=== PATIENT | male | born 1940 | race Caucasian/White ===

== ENCOUNTER 2017-12-26 15:18 | Emergency (ER) | payer MEDICARE ==
[2017-12-26 15:23] VITALS: BP 145/78; PULSE 94; RESP 20; TEMP 98.2; O2SAT 96
--- NOTE | 2017-12-26 17:45 | C.PDOC ---
History Of Present Illness Pt c/o LLE pain. Denies injury. Time Seen by Provider: 12/26/17 15:50 Chief Complaint (Nursing): Lower Extremity Problem/Injury History Per: Patient Onset/Duration Of Symptoms: Days (few) Current Symptoms Are (Timing): Still Present Severity: Moderate Additional History Per: Prior Records Past Medical History Reviewed: Historical Data, Nursing Documentation, Vital Signs Vital Signs: Last Vital Signs Temp 98.2 F 12/26/17 15:21 Pulse 94 H 12/26/17 15:21 Resp 20 12/26/17 15:21 BP 145/78 12/26/17 15:21 Pulse Ox 96 12/26/17 15:21 - Medical History PMH: Diabetes, HTN Other Surgeries: LE bypass graft Family History: States: Unknown Family Hx - Social History Hx Alcohol Use: No Hx Substance Use: No - Immunization History Hx Tetanus Toxoid Vaccination: No Hx Influenza Vaccination: Yes Hx Pneumococcal Vaccination: Yes Review Of Systems Except As Marked, All Systems Reviewed And Found Negative. Constitutional: Negative for: Fever, Weakness Cardiovascular: Negative for: Chest Pain Respiratory: Negative for: Shortness of Breath, Hemoptysis Gastrointestinal: Negative for: Vomiting, Abdominal Pain Musculoskeletal: Positive for: Leg Pain (left). Negative for: Neck Pain, Back Pain Skin: Negative for: Rash Neurological: Negative for: Weakness, Numbness Physical Exam - Physical Exam Appears: Non-toxic, No Acute Distress Skin: Normal Color, Warm, Dry, No Rash Head: Atraumatic, Normacephalic Eye(s): bilateral: Normal Inspection, PERRL, EOMI Neck: Normal ROM, Supple Cardiovascular: Rhythm Regular Respiratory: Normal Breath Sounds, No Accessory Muscle Use Gastrointestinal/Abdominal: Soft, No Tenderness Back: No CVA Tenderness, No Vertebral Tenderness Extremity: Normal ROM, No Pedal Edema, Calf Tenderness (mild left), Capillary Refill (wnl) Extremity: Bilateral: Normal Color And Temperature Pulses: Left Dorsalis Pedis: Normal Neurological/Psych: Oriented x3, Normal Motor, Normal Sensation ED Course And Treatment O2 Sat by Pulse Oximetry: 96 Pulse Ox Interpretation: Normal - CT Scan/US LLE duplex Other Rad Studies (CT/US): Radiology Report Reviewed CT/US Interpretation: Negative for DVT. Progress - Interventions Interventions:: Observation - Medications Administered Oral: Acetaminophen - Data Reviewed Data Reviewed: Diagnostic imaging - Patient Status Patient status: Partially improved - Continuity of Care Discussed patient case with:: Patient, ED Nurse - Patient Plan Patient Plan: Discharge, F/U with PCP, Continue present meds Disposition Counseled Patient/Family Regarding: Studies Performed, Diagnosis, Need For Followup, Rx Given - Disposition Referrals: Aubrey Benavidez Jr., MD [Staff Provider] - Disposition: HOME/ ROUTINE Disposition Time: 17:46 Condition: IMPROVED Additional Instructions: Follow up with your doctor within 1 week for further evaluation and treatment. Return to the ER if you develop redness, swelling, chest pain, shortness of breath, weakness, numbness, worsening of symptoms or if you have any other concerns. Prescriptions: Acetaminophen [Tylenol Extra Strength] 2 tab PO Q6 PRN #30 tablet PRN Reason: Pain, Moderate (4-7) Forms: [facility] (Russian), General Discharge Instructions Print Language: GREENLANDIC - Clinical Impression Clinical Impression: Pain of left lower extremity
--- NOTE | 2017-12-28 09:13 | VASCLAB ---
PROCEDURE: Left Lower Extremity Venous Duplex Exam. HISTORY: Pain r/o DVT PRIORS: None. TECHNIQUE: Left common femoral, femoral, popliteal and posterior tibial, peroneal and great saphenous veins were evaluated. Flow was assessed with color Doppler, compressibility, assessment of phasic flow and augmentation response. Report prepared by ILIA Cortez FINDINGS: LEFT: 1. Common Femoral Vein: 1.1. Compressibility - Fully compressible: Thrombus - None : Flow - Phasic: Augmentation -Normal: Reflux - None. 2. Femoral Vein: 2.1. Compressibility - Fully compressible: Thrombus - None: Flow - Phasic: Augmentation -Normal: Reflux - None. 3. Popliteal Vein: 3.1. Compressibility - Fully compressible: Thrombus - None: Flow - Phasic: Augmentation -Normal: Reflux - None. 4. Posterior Tibial Vein: 4.1. Compressibility - Fully compressible: Thrombus - None: Flow - Phasic: Augmentation -Normal: Reflux - None. 5. Peroneal Vein: 5.1. Compressibility - Fully compressible: Thrombus - None: Flow - Phasic: Augmentation -Normal: Reflux - None. 6. Great Saphenous Vein: 6.1. Compressibility - : Thrombus - : Flow - : Augmentation - : Reflux - . OTHER FINDINGS: Femoro-tibial trunk bypass was patent. The great saphenous vein was previously removed for bypass. IMPRESSION: No evidence of deep or superficial vein thrombosis of the left lower extremity with excellent venous flow. Normal valve function noted of the left side. Normal venous flow noted in the right common femoral vein.
== END 2017-12-26 17:58 | disposition home or self-care (01) ==
LOC: C.ER 15:18
DX: M79.605 Pain in left leg (principal)

== ENCOUNTER 2018-02-21 18:30 | Emergency (ER) | payer MEDICARE ==
[2018-02-21 19:06] VITALS: BP 126/74; PULSE 78; RESP 18; TEMP 98; O2SAT 98
--- NOTE | 2018-02-21 19:08 | C.PDOC ---
History Of Present Illness 77 year old male presents to the ER with a complaint of left testicular pain that began today. Patient notes having a similar episode a few months ago. Denies injury, dysuria, hematuria, or fever. Chief Complaint (Nursing): Male Genitourinary History Per: Patient History/Exam Limitations: no limitations Onset/Duration Of Symptoms: Hrs Current Symptoms Are (Timing): Still Present Quality Of Discomfort: Unable To Describe Associated Symptoms: denies: Fever, Urinary Symptoms Alleviating Factors: None Recent travel outside of the [place]: No Past Medical History Reviewed: Historical Data, Nursing Documentation, Vital Signs Vital Signs: Last Vital Signs Temp 98 F 02/21/18 19:00 Pulse 78 02/21/18 19:00 Resp 18 02/21/18 19:00 BP 126/74 02/21/18 19:00 Pulse Ox 98 02/21/18 19:20 - Medical History PMH: Diabetes, HTN Family History: States: Unknown Family Hx - Social History Hx Alcohol Use: No Hx Substance Use: No - Immunization History Hx Tetanus Toxoid Vaccination: No Hx Influenza Vaccination: Yes Hx Pneumococcal Vaccination: Yes Review Of Systems Constitutional: Negative for: Fever Gastrointestinal: Negative for: Abdominal Pain Genitourinary: Positive for: Other (Left testicular pain). Negative for: Dysuria, Hematuria Skin: Negative for: Rash Physical Exam - Physical Exam Appears: Non-toxic Skin: Normal Color, Warm, Dry Head: Atraumatic, Normacephalic Eye(s): bilateral: Normal Inspection Oral Mucosa: Moist Chest: Symmetrical, No Tenderness Cardiovascular: Rhythm Regular Respiratory: Normal Breath Sounds, No Rales, No Rhonchi, No Wheezing Gastrointestinal/Abdominal: Soft, No Tenderness Male Genital: No Testicular Swelling, No Inguinal Swelling, No Scrotal Swelling , Other (Mild tenderness to posterior left testicle) Neurological/Psych: Oriented x3, Normal Speech ED Course And Treatment - Laboratory Results Result Diagrams: 02/21/18 19:19 02/21/18 19:19 O2 Sat by Pulse Oximetry: 98 (Room air) Pulse Ox Interpretation: Normal Progress Note: Blood work, urinalysis, and testicular US ordered. IV fluids and toradol administered. Disposition - Disposition Disposition: ELOPEMENT - ER ONLY Disposition Time: 10:20 Condition: STABLE Forms: [facility] (Chadian) - POA Present On Arrival: None - Clinical Impression Clinical Impression: Left testicular pain - Scribe Statement The provider has reviewed the documentation as recorded by the Scribe Navi Pierce All medical record entries made by the Scribe were at my direction and personally dictated by me. I have reviewed the chart and agree that the record accurately reflects my personal performance of the history, physical exam, medical decision making, and the department course for this patient. I have also personally directed, reviewed, and agree with the discharge instructions and disposition.
[2018-02-21] MEDS ORDERED: Sodium Chloride 0.9% 1,000 ML IV ONE (19:11)
[2018-02-21] MEDS ORDERED: Sodium Chloride 0.9% 1,000 ML ONE (19:17)
[2018-02-21 19:26] LABS: BASO # 0.1 K/uL (0.0-0.2); BASO % 0.9 % (0.0-2.0); EOS # 0.2 K/uL (0.0-0.7); EOS % 2.6 % (0.0-4.0); HEMOGLOBIN 13.3 g/dL (12.0-18.0); LYMPH # 2.2 K/uL (1.0-4.3); LYMPH % 26.5 % (20.0-40.0); MEAN CELL VOLUME 92.6 fL (80.0-94.0); MEAN CORPUSCULAR HEMOGLOBIN 30.7 pg (27.0-31.0); MEAN CORPUSCULAR HGB CONC 33.2 g/dL (33.0-37.0); MEAN PLATELET VOLUME 8.9 fL (7.2-11.7); MONO # 0.5 K/uL (0.0-0.8); MONO % 5.6 % (0.0-10.0); NEUT # 5.3 K/uL (1.8-7.0); NEUT % 64.4 % (50.0-75.0); NRBC % 0.2 % (0.0-2.0); RBC 4.34 Mil/uL (4.40-5.90); RED CELL DISTRIBUTION WIDTH 14.1 % (11.5-14.5); WHITE BLOOD COUNT 8.2 K/uL (4.8-10.8)
[2018-02-21 19:34] LABS: URINE BILIRUBIN NEGATIVE (NEGATIVE); URINE BLOOD 2+ (NEGATIVE); URINE CLARITY Clear (Clear); URINE COLOR Yellow (YELLOW); URINE GLUCOSE (UA) NORMAL (Normal); URINE HYALINE CAST 0-2 /lpf (0-2); URINE LEUKOCYTE ESTERASE NEG Leu/uL (Negative); URINE PROTEIN 2+ mg/dL (NEGATIVE)
[2018-02-21 19:40] LABS: ALB/GLOB RATIO 1.2 (1.0-2.1); ALBUMIN 3.7 g/dL (3.5-5.0); ALT/SGPT 18 U/L (21-72); AST/SGOT 19 U/L (17-59); BLOOD UREA NITROGEN 17 mg/dL (9-20); CALCIUM 9.4 mg/dl (8.6-10.4); GFR AFRICAN-AMERICAN > 60; GFR NON-AFRICAN AMERICAN > 60
--- NOTE | 2018-02-21 21:27 | US ---
EXAM: US Scrotum EXAM DATE/TIME: 02/21/2018 7:10 PM CLINICAL HISTORY: 77 years old, male; Pain; Scrotum pain; Additional info: Left testucular pain/ minimal swelling TECHNIQUE: Real-time ultrasound of the scrotum with color Doppler and image documentation. COMPARISON: No relevant prior studies available. FINDINGS: Right testicle: Within normal limits in appearance. Measures 3.4 x 1.8 x 2.5 cm. Flow seen in the right testicle on color and Doppler imaging, with no evidence of torsion. Right epididymis: Contains multiple tiny, simple-appearing cysts, the largest measuring 4.5 mm. Otherwise unremarkable in appearance. Head measures 9 x 9 mm. Left testicle: In the lower pole of the left testis, there is a focal lesion seen measuring 6.5 x 5.8 x 6.2 mm. This has a round shape and well-defined margins. It appears complex cystic in nature. Internally, it is composed of small cystic areas, which have a lacelike appearance. 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 Flow seen in the left testicle on color and Doppler imaging, with no evidence of torsion. Left epididymis: Enlarged, with the head measuring 3.1 x 2.3 cm. This is due to multiple cystic lesions. At least 3 cystic lesions are seen. The largest measures 2.5 x 2.2 cm maximally, and has low level internal echoes. It is suspicious for a spermatocele. The second largest lesion measures 1.3 x 1.1 cm, and appears simple in nature. It could represent a spermatocele versus an epididymal cyst. Hydrocoele: Small bilateral hydroceles. Varicocele: None seen. 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 In a patient of this age, consider either a short term followup ultrasound to document stability of this finding or followup nonemergent testicular MRI, to definitely rule out a testicular carcinoma with cystic areas, considered unlikely. Large cystic lesions in the left epididymis, measuring up to 2.5 cm, suspicious for spermatoceles. This finding can be seen in association with tubular ectasia of the testes. Small bilateral hydroceles. Tiny right epididymal cysts. See above for remaining findings.
== END 2018-02-21 23:01 | disposition left against medical advice (07) ==
LOC: C.ER 18:30
DX: N50.812 Left testicular pain (principal); I10 Essential (primary) hypertension; E11.9 Type 2 diabetes mellitus without complications; Z87.891 Personal history of nicotine dependence
CPT/HCPCS: 76870; 80053; 81001; 82948; 85025; 87086; 96374; 99283; J1885; J7030

== ENCOUNTER 2019-02-08 02:10 | Emergency (ER) | payer MEDICARE ==
--- NOTE | 2019-02-08 02:55 | C.PDOC ---
History Of Present Illness 78 year old male with PMhx of HTN and DM presents to the ED c/o right foot/ankle pain and swelling. Patient reports yesterday at 14:00 his right heel started hurting. Patient reports pain worsens when he put pressure with his right foot. Patient taking Tramadol but states it does not help. Patient denies fever, chills, CP, SOb, rash, injury, fall, trauma, weakness, numbness. Time Seen by Provider: 02/08/19 02:33 Chief Complaint (Nursing): Lower Extremity Problem/Injury History Per: Patient History/Exam Limitations: no limitations Onset/Duration Of Symptoms: Days Current Symptoms Are (Timing): Still Present Recent travel outside of the [place]: No Additional History Per: Patient - Ankle/Foot Description Of Injury: Other Currently Unable To: Bear Weight Past Medical History Reviewed: Historical Data, Nursing Documentation, Vital Signs Vital Signs: Last Vital Signs Temp 99.3 F 02/08/19 02:12 Pulse 101 H 02/08/19 02:12 Resp 17 02/08/19 02:12 BP 168/81 H 02/08/19 02:12 Pulse Ox 95 02/08/19 02:12 Primary Care Provider: Non [facility] Provider, - Medical History PMH: Diabetes, HTN Surgical History: No Surg Hx Family History: States: Unknown Family Hx - Social History Hx Alcohol Use: No Hx Substance Use: No - Immunization History Hx Tetanus Toxoid Vaccination: No Hx Influenza Vaccination: Yes Hx Pneumococcal Vaccination: Yes Review Of Systems Constitutional: Negative for: Fever, Chills Cardiovascular: Negative for: Chest Pain Respiratory: Negative for: Shortness of Breath Gastrointestinal: Negative for: Nausea, Vomiting, Abdominal Pain Musculoskeletal: Positive for: Foot Pain. Negative for: Leg Pain Skin: Negative for: Rash Neurological: Negative for: Weakness, Numbness, Headache Physical Exam - Physical Exam Appears: Non-toxic, No Acute Distress Skin: Normal Color, Warm, Dry, No Rash Head: Atraumatic, Normacephalic Eye(s): bilateral: Normal Inspection Neck: Normal ROM, Supple Chest: Symmetrical Cardiovascular: Rhythm Regular Respiratory: Normal Breath Sounds, No Rales, No Rhonchi, No Wheezing Extremity: Normal ROM, Tenderness (right mid foot ), Capillary Refill (< 2 seconds), No Deformity, Swelling (right medial malleolus with warmth), Other (no erythema) Pulses: Left Dorsalis Pedis: Normal, Right Dorsalis Pedis: Normal Neurological/Psych: Oriented x3, Normal Speech, Normal Cognition, Normal Motor, Normal Sensation Gait: Steady ED Course And Treatment O2 Sat by Pulse Oximetry: 95 (ON RA) Pulse Ox Interpretation: Normal Medical Decision Making Medical Decision Making: Plan: * Right foot X-Ray * Right ankle X-Ray Disposition - Disposition Disposition Time: 07:00 Condition: STABLE Forms: [facility] (Swedish) - Clinical Impression Clinical Impression: Pain, joint, ankle and foot - Scribe Statement The provider has reviewed the documentation as recorded by the Scribe Paul Gordon All medical record entries made by the Scribe were at my direction and personally dictated by me. I have reviewed the chart and agree that the record accurately reflects my personal performance of the history, physical exam, me dical decision making, and the department course for this patient. I have also personally directed, reviewed, and agree with the discharge instructions and disposition. Physician Patient Turnover Patient Signed Over To: Dharmesh Edmond Handoff Comments: Pending Doppler US, dispo
[2019-02-08 05:01] VITALS: TEMP 97.8
[2019-02-08 05:43] VITALS: O2SAT 95
[2019-02-08 09:07] VITALS: BP 137/82; PULSE 85; RESP 20
--- NOTE | 2019-02-08 09:50 | RAD ---
Date of service: 02/08/2019 PROCEDURE: Right Ankle and foot radiographs. HISTORY: pain COMPARISON: None available. TECHNIQUE: 3 views obtained. FINDINGS: BONES: No acute fracture identified JOINTS: No dislocation seen. Degenerative changes noted at the 1st MTP joint. Ankle mortise is maintained. Talar dome appears intact. SOFT TISSUES: Unremarkable OTHER FINDINGS: None. IMPRESSION: No acute fracture or dislocation identified.
--- NOTE | 2019-02-08 11:46 | VASCLAB ---
Date of service: 02/08/2019 PROCEDURE: Right Lower Extremity Venous Duplex Exam. HISTORY: Pain/swelling PRIORS: None. TECHNIQUE: Right common femoral, femoral, popliteal and posterior tibial, peroneal and great saphenous veins were evaluated. Flow was assessed with color Doppler, compressibility, assessment of phasic flow and augmentation response. Report prepared by BAILEY Rivera, RVT FINDINGS: RIGHT: 1. Common Femoral Vein: 1.1. Compressibility - Fully compressible: Thrombus - None: Flow - Phasic: Augmentation -Normal: Reflux - None. 2. Femoral Vein: 2.1. Compressibility - Fully compressible: Thrombus - None: Flow - Phasic: Augmentation -Normal: Reflux - None. 3. Popliteal Vein: 3.1. Compressibility - Fully compressible: Thrombus - None: Flow - Phasic: Augmentation -Normal: Reflux - None. 4. Posterior Tibial Vein: 4.1. Compressibility - Fully compressible: Thrombus - None: Flow - Phasic: Augmentation -Normal: Reflux - None. 5. Peroneal Vein: 5.1. Compressibility - Fully compressible: Thrombus - None: Flow - Phasic: Augmentation -Normal: Reflux - None. 6. Great Saphenous Vein: 6.1. Compressibility - Fully compressible: Thrombus -None: Flow - Phasic: Augmentation - Normal: Reflux - None. OTHER FINDINGS: Normal venous flow noted in the left common femoral vein. IMPRESSION: No evidence of deep or superficial vein thrombosis of the right lower extremity with excellent venous flow. Normal valve function noted of the right side.
== END 2019-02-08 09:11 | disposition home or self-care (01) ==
LOC: C.ER 02:10
DX: M25.571 Pain in right ankle and joints of right foot (principal); M79.671 Pain in right foot; E11.9 Type 2 diabetes mellitus without complications; I10 Essential (primary) hypertension